=== PATIENT | male | born 1950 | race Caucasian/White ===

== ENCOUNTER → 2019-02-24 08:41 | Outpatient (CLI) | payer MEDICARE, OTHER, SELFPAY ==
--- NOTE | 2019-02-24 08:00 | RAD_ITS ---
PROCEDURE: Fluoroscopic guided left Hip Injection DATE: February 24, 2019. INDICATION: Male, 68 years old. Chronic hip pain. PHYSICIAN: Harjit Ulloa M.D. MEDICATIONS: 80 mg of Kenalog and 3 cc of 1% lidocaine. 2% Lidocaine administered subcutaneously for local anesthesia. ACCESS SITE: Left hip. NEEDLE: 22-gauge spinal needle. FLUOROSCOPY TIME (if supplied): (1:14) minutes/seconds FINDINGS: The risks, benefits, and alternatives to the procedure were explained to the patient. The specific risks of bleeding, infection, and neurovascular injury were detailed and accepted. Witnessed informed consent was obtained. A 22-gauge spinal needle was positioned under fluoroscopic localization. Approximately 2 cc of Isovue-300 instilled for localization purposes. Medication was then injected. The patient tolerated the procedure well without any immediate complications. RAD/Inj/Asp Wolf Jt Should/Hip/Knee IMPRESSION: 1. Successful fluoroscopic guided hip injection. Electronically Signed: Harjit Ulloa, at 11:22 EST , Service support ,
== END ==
PROVIDERS: Family Provider Internal Medicine; PCP Internal Medicine; Referring Provider Orthopaedic Surgery; Visit Provider Orthopaedic Surgery
DX: M25.552 Pain in left hip (principal); G89.29 Other chronic pain
CPT/HCPCS: 20610; 77002; Q9967

== ENCOUNTER → 2020-07-26 09:41 | Outpatient (CLI) | payer MEDICARE, OTHER, SELFPAY ==
--- NOTE | 2020-07-26 09:44 | CDU_ITS ---
Reason For Study: CAROTID STENOSIS Rt. Velocities/BP Lt. Velocities/BP Prox CCA 82.9/13.8 cm/sec. Prox CCA 68.7/22.6 cm/sec. Mid CCA 76.4/19.0 cm/sec. Mid CCA 49.0/19.1 cm/sec. Dist CCA 60.8/24.3 cm/sec. Dist CCA 46.2/15.6 cm/sec. Prox ICA 62.5/14.6 cm/sec. Prox ICA 55.4/24.1 cm/sec. Mid ICA 71.1/25.7 cm/sec. Mid ICA 61.6/24.6 cm/sec. Dist ICA 84.6/18.3 cm/sec. Dist ICA 67.1/25.1 cm/sec. Rt. ICA/CCA = 84.6/76.4=1.1. Lt. ICA/CCA = 67.1/49.0=1.3. Prox ECA 198.4/43.0 cm/sec. Flow noted in ECA, did not record Rt. Vert. 39.6/13.1 cm/sec. velocities. Lt. Vert. 43.8/11.1 cm/sec. Right Extracranial There is homogeneous, smooth atherosclerotic plaque noted in the right common carotid artery. There is heterogeneous, irregular atherosclerotic plaque noted in the right internal carotid artery. There is heterogeneous, irregular atherosclerotic plaque noted in the right external carotid artery. Antegrade flow is noted in the right vertebral artery. There is heterogeneous, irregular atherosclerotic plaque noted in the left bulb. Left Extracranial There is homogeneous, smooth atherosclerotic plaque noted in the left common carotid artery. There is homogeneous, smooth atherosclerotic plaque noted in the left internal carotid artery. The atherosclerotic plaque causes acoustic shadowing. There is heterogeneous, irregular atherosclerotic plaque noted in the left external carotid artery. Antegrade flow is noted in the left vertebral artery. There is a carotid artery stent noted in the left distal CCA to left mid ICA. There is accoustic shadowing. Procedure Carotid Duplex [id number]. The study was technically difficult. Exam performed in department. VL/Carotid Duplex Ultrasound Interpretation Summary Mild (<50%) stenosis right extracranial internal carotid. Mild (<50%) stenosis left extracranial internal carotid. Flow within the vertebral arteries is antegrade bilaterally. Ordering Physician: Jesus Weeks Referring Physician: Chris Byrd Performed By: Monisha Collazo, REVA, RVT
== END ==
PROVIDERS: PCP Internal Medicine; Referring Provider Surgery Vascular Surgery; Visit Provider Surgery Vascular Surgery
DX: I65.23 Occlusion and stenosis of bilateral carotid arteries (principal); Z96.89 Presence of other specified functional implants; I63.9 Cerebral infarction, unspecified; Z87.891 Personal history of nicotine dependence; I10 Essential (primary) hypertension
CPT/HCPCS: 93880

== ENCOUNTER → 2022-08-30 | Outpatient (CLI) | payer MEDICARE, OTHER, SELFPAY ==
--- NOTE | 2022-08-30 10:32 | CDU_ITS ---
Reason For Study: Carotid Stenosis Rt. Velocities/BP Lt. Velocities/BP Prox CCA 70/13 cm/sec. Prox CCA 61/20 cm/sec. Mid CCA 67/14 cm/sec. Mid CCA 49/18 cm/sec. Dist CCA 71/16 cm/sec. Dist CCA 35/11 cm/sec. Prox ICA 129/19 cm/sec. Prox ICA 68/22 cm/sec. Mid ICA 129/14 cm/sec. Mid ICA 80/27 cm/sec. Dist ICA 68/16 cm/sec. Dist ICA 71/27 cm/sec. Rt. ICA/CCA = 1.9. Lt. ICA/CCA = 1.6. Prox ECA 184/15 cm/sec. Prox ECA 26/4 cm/sec. Rt. Vert. 38/10 cm/sec. Lt. Vert. 129/32 cm/sec. Right Extracranial There is heterogeneous, irregular atherosclerotic plaque noted in the right common carotid artery. There is heterogeneous, irregular atherosclerotic plaque noted in the right internal carotid artery. There is heterogeneous, irregular atherosclerotic plaque noted in the right external carotid artery. Antegrade flow is noted in the right vertebral artery. Left Extracranial There is heterogeneous, irregular atherosclerotic plaque noted in the left common carotid artery. There is no significant atherosclerotic plaque noted in the left internal carotid artery. Stent noted from mid Lt CCA to mid Lt ICA, acoustic shadowing noted prox ICA. There is no significant atherosclerotic plaque noted in the left external carotid artery. Antegrade flow is noted in the left vertebral artery. Procedure Carotid Duplex [id number]. This is a Carotid Duplex examination using B-mode, color flow and specral Doppler. Exam performed in department. VL/Carotid Duplex Ultrasound Interpretation Summary Moderate (50-69%) stenosis right extracranial internal carotid. 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 Flow within the vertebral arteries is antegrade bilaterally. Ordering Physician: Jesus Weeks Referring Physician: Chris Byrd Performed By: Irene Duke REVA, RVT
== END | disposition home or self-care (01) ==
LOC: CVS 10:31
PROVIDERS: PCP Internal Medicine; Referring Provider Surgery Vascular Surgery; Visit Provider Surgery Vascular Surgery
DX: I65.23 Occlusion and stenosis of bilateral carotid arteries (principal); I63.9 Cerebral infarction, unspecified; Z96.89 Presence of other specified functional implants
CPT/HCPCS: 93880

== ENCOUNTER 2024-01-17 11:53 | Inpatient (IN) | payer MEDICARE, OTHER, SELFPAY ==
[2024-01-17] VITALS (19 sets, daily range): BP systolic 76–132; BP diastolic 47–69; PULSE 81–155; RESP 15–29; TEMP 36.4–37.7; O2SAT 93–98; BMI 21.8; BMI 30.8
--- NOTE | 2024-01-17 12:07 | EKG12_ITS ---
Test Reason : Blood Pressure : */* mmHG Vent. Rate : 153 BPM Atrial Rate : * BPM P-R Int : * ms QRS Dur : 134 ms QT Int : 308 ms P-R-T Axes : * -57 9 degrees QTcB Int : 491 ms Critical Test Result: High HR aflutter with 2:1 conduction Left axis deviation Right bundle branch block Abnormal ECG Confirmed by See Doss ([id number]), film or videotape editor [place] ([id number]) on 01/18/2024 1:42:40 PM Referred By: Santino Herrera Confirmed By: See Doss
--- NOTE | 2024-01-17 12:07 | RAD_ITS ---
STUDY: X-RAY CHEST REASON FOR EXAM: Male, 73 years old. Tachypnea . Cough and fever. Shortness of breath. TECHNIQUE: Single AP portable view of the chest. COMPARISON: None. FINDINGS: EKG electrodes are seen. Hyperinflation. Bibasilar infiltrates. There is no demonstrated pleural abnormality. Normal size heart. Normal mediastinum and yas. Normal visualized pulmonary arteries. There is atherosclerotic calcification of the aortic arch with tortuosity. Normal visualized thoracic spine. There is degenerative osteoarthritis of the bilateral shoulders. There is no demonstrated abnormality of the visualized soft tissue structures of the upper abdomen. RAD/Chest 1 View (Portable) IMPRESSION: Hyperinflation. Bibasilar infiltrates. Electronically Signed: Harjit Ulloa MD at 13:16 EST ,
--- NOTE | 2024-01-17 12:11 | EDS_ITS ---
HPI <YE Craig - Last Filed: 01/17/24 14:43> History of Present Illness Chief Complaint: Hypotension Narrative Narrative: Patient presenting today with concerns for a productive cough with yellow- colored sputum, shortness of breath, weakness, decreased appetite, and fevers he has had over the last 4 days. He reports that his has been sick with similar symptoms but is getting better. He denies chest pain, abdominal pain, nausea, vomiting, and diarrhea. He has a PMH of carotid artery stenosis on Plavix, HTN, and HLD. PFSH <YE Craig - Last Filed: 01/17/24 14:43> [facility] Medical History High cholesterol HTN (hypertension) Home Medications ?Medication ?Instructions ?Recorded ?Last Taken ?Type albuterol sulfate 90 mcg/actuation 2 puff inhalation Q4H PRN PRN cough 01/17/24 Unknown History aerosol inhaler atorvastatin 20 mg tablet 20 mg PO QHS 01/17/24 Unknown History clopidogrel 75 mg tablet 75 mg PO DAILY 01/17/24 Unknown History lisinopril 20 1 tab PO DAILY 01/17/24 Unknown History mg-hydrochlorothiazide 25 mg tablet loratadine 10 mg tablet (Claritin) 10 mg PO DAILY 01/17/24 Unknown History sildenafil 100 mg tablet 100 mg PO Q24H PRN sexual activity 01/17/24 Unknown History sildenafil 50 mg tablet 50 mg PO DAILY PRN sexual activity 01/17/24 Unknown History Allergy/AdvReac Type Severity Reaction Status Date / Time Penicillins Allergy Unknown Verified 01/17/24 11:55 Social History Smoking Status: Former smoker ROS <YE Craig - Last Filed: 01/17/24 14:43> ROS ED Constitutional Constitutional ED: Denies chills or fever(s) Cardiovascular Cardiovascular: Denies chest pain Respiratory/Chest Respiratory/Chest: Reports cough, dyspnea and sputum Gastrointestinal Gastrointestinal: Denies abdominal pain, nausea or vomiting Genitourinary Genitourinary ED: Denies dysuria, hematuria or urinary urgency Musculoskeletal Musculoskeletal: Denies arthralgias or myalgias Integumentary Denies rash Neurologic Neurologic: Denies weakness EXAM <YE Craig - Last Filed: 01/17/24 14:43> Physical Exam Const Vital Signs: 01/17/24 11:54 01/17/24 12:00 01/17/24 12:02 Temperature 99.8 F H Temperature Source Oral Pulse Rate 155 H 154 H 141 H Respiratory Rate 16 15 21 H Respiratory Effort Blood Pressure 88/47 L 88/47 L 76/65 L Blood Pressure Mean 60 60 68 Pulse Ox 95 96 96 Oxygen Delivery Method Room Air Room Air Room Air 01/17/24 12:02 01/17/24 12:03 01/17/24 12:15 Temperature Temperature Source Pulse Rate 154 H 147 H Respiratory Rate 21 H 22 H Respiratory Effort Short of Breath Blood Pressure 76/65 L 84/59 L Blood Pressure Mean 68 67 Pulse Ox 96 95 Oxygen Delivery Method 01/17/24 13:58 01/17/24 13:59 01/17/24 14:04 Temperature 99 F 99 F Temperature Source Oral Pulse Rate 150 H 150 H 148 H Respiratory Rate 21 H 21 H 27 H Respiratory Effort Blood Pressure 96/67 96/67 105/69 Blood Pressure Mean 76 76 81 Pulse Ox 95 95 95 Oxygen Delivery Method Room Air Positive well nourished, well developed and no apparent distress General Appearance ED: well developed HEENT Reports normocephalic and head/scalp atraumatic Mouth ED: Yes moist mucous membranes normal Eyes PERRL and EOMs intact bilaterally Neck full ROM and supple Chest Wall inspection of chest normal Resp normal respiratory effort Resp Narrative: Diffuse rhonchi at the bilateral lung bases. Cardio regular rate and regular rhythm GI soft to palpation, non-tender, non-distended and no masses Back/Spine normal ROM and normal to inspection Extremity normal to inspection and full ROM Neuro oriented x3, CN's II-XII intact bilaterally, moves all extremities, no focal motor deficits and no sensory deficits noted Sensorium / Orientation: awake and alert Psych mental status grossly normal and thought process normal Skin no rashes or lesions noted and no wounds <Dr. Santino Herrera MD - Last Filed: 01/17/24 14:44> Physical Exam Const Vital Signs: 01/17/24 11:54 01/17/24 12:00 01/17/24 12:02 Temperature 99.8 F H Temperature Source Oral Pulse Rate 155 H 154 H 141 H Respiratory Rate 16 15 21 H Respiratory Effort Blood Pressure 88/47 L 88/47 L 76/65 L Blood Pressure Mean 60 60 68 Pulse Ox 95 96 96 Oxygen Delivery Method Room Air Room Air Room Air 01/17/24 12:02 01/17/24 12:03 01/17/24 12:15 Temperature Temperature Source Pulse Rate 154 H 147 H Respiratory Rate 21 H 22 H Respiratory Effort Short of Breath Blood Pressure 76/65 L 84/59 L Blood Pressure Mean 68 67 Pulse Ox 96 95 Oxygen Delivery Method 01/17/24 13:58 01/17/24 13:59 01/17/24 14:04 Temperature 99 F 99 F Temperature Source Oral Pulse Rate 150 H 150 H 148 H Respiratory Rate 21 H 21 H 27 H Respiratory Effort Blood Pressure 96/67 96/67 105/69 Blood Pressure Mean 76 76 81 Pulse Ox 95 95 95 Oxygen Delivery Method Room Air Sepsis Attestation <Dr. Santino Herrera MD - Last Filed: 01/17/24 14:44> Sepsis Alert: Yes Sepsis Attestation: Agree w/Sepsis Date exam was performed: 01/17/24 Time exam was performed: 12:13 Sepsis Organ Dysfunction Criteria Present: SBP < 90 mmHg or MAP < 65 mmHg Fluid Resuscitation Fluid resuscitation indicated?: Yes Fluid Resuscitation ordered: 30 ml/kg fluid bolus ordered Amount of fluid ordered: 2,100 Sepsis Note Date exam was performed: 01/17/24 Time exam was performed: 13:44 Sepsis Attestation: Sepsis re-evaluation was performed Response to fluids: Fluid responsive hypotension MDM <YE Craig - Last Filed: 01/17/24 14:43> MDM MDM Narrative Medical decision making narrative: Patient presenting today with a productive cough, weakness, shortness of breath, and intermittent fevers she has had over the past 4 days. Vitals initially show a BP of 88/47, pulse of 155 bpm, temp of 99.8 ?F, and O2 sat of 95% on room air. Given his labs, he does trigger SIRS criteria and sepsis workup will be obtained. Patient started on IV fluids. His WBC is elevated at 18.2. BUN is 43, creatinine 2.27, bilirubin is 1.2, BNP is 269. Lactate is 2. He has been given 2 L IV fluids, and his blood pressure has responded and is now 105/69. Chest x-ray does show bibasilar infiltrates. He was started on IV Levaquin. Blood cultures were obtained prior to antibiotics. Patient was discussed with the hospitalist, the attending ED physician did place a central line and patient admitted to the ICU in stable condition. I have personally performed a face to face assessment of the patient and have reviewed the EFRAIN Note. I performed a substantive portion of the visit including all aspects of the following. My judd findings include: History is remarkable for shortness of breath, cough that is productive, fever. He arrived hypotensive. He appears ill. He has history of lung disease, hypercholesterolemia, and presumed carotid artery stenosis and reason he is on Plavix. He is not Exam is patient appears ill. Hypotensive, tachycardic tachypneic temperature is 99.8. He is not hypoxic on room air. Lungs reveal diminished breath sounds. He has crackles left greater than right. There is no use of accessory muscles. There is no increased expiratory phase. Abdomen is soft nontender. Bowel sounds are diminished. Medical Decision Making patient's presentation is concerning for sepsis. Sepsis order set was initiated. Patient did receive a 30 cc/kg bolus since he is hypotensive. EKG was obtained to evaluate for acute ischemia. Other additions or changes: White count is 18.2 thousand. H&H is normal. There is a shift. Suspect patient's source is pulmonary. Since he is allergic to penicillin with unknown allergy will treat with levofloxacin. Lab Data Labs: Laboratory Results - last 24 hr 01/17/24 12:13 WBC 18.2 H RBC 4.32 L Hgb 13.5 Hct 40.4 MCV 93.5 MCH 31.3 MCHC 33.4 RDW Std Deviation 45.1 H RDW Coeff of Ebony 13.0 Plt Count 181 MPV 11.3 Immature Gran % (Auto) 0.600 Neut % (Auto) 83.4 H Lymph % (Auto) 5.1 L [place] % (Auto) 10.6 H Eos % (Auto) 0.1 Baso % (Auto) 0.2 Absolute Neuts (auto) 15.2 H Absolute Lymphs (auto) 0.92 Nucleated RBC % 0 Differential Comment COMMENT Diff Path Review May foll PT 15.5 H INR 1.2 APTT 29.1 Sodium 136 Potassium 4.3 Chloride 104 Carbon Dioxide 24.0 Anion Gap 9 BUN 43 H Creatinine 2.27 H Estim Creat Clear Calc 30.37 Est GFR (MDRD) Af Amer 37 L Est GFR (MDRD) Non-Af 30 L BUN/Creatinine Ratio 18.9 Glucose 131 H Lactic Acid 2.0 Calcium 9.1 Total Bilirubin 1.20 H AST 29 ALT 22 Alkaline Phosphatase 71 Troponin I High Sens 27 B-Natriuretic Peptide 269.2 H Total Protein 7.1 Albumin 3.0 L Globulin 4.1 Albumin/Globulin Ratio 0.7 L Radiography Diagnostic Testing: Clinical Impression(s) from Imaging Studies Chest X-Ray 01/17/24 12:07 IMPRESSION: Hyperinflation. Bibasilar infiltrates. Electronically Signed: Harjit Ulloa MD at 13:16 EST , <Dr. Santino Herrera MD - Last Filed: 01/17/24 14:44> [facility] MDM Narrative Medical decision making narrative: Patient presenting today with a productive cough, weakness, shortness of breath, and intermittent fevers she has had over the past 4 days. Vitals initially show a BP of 88/47, pulse of 155 bpm, temp of 99.8 ?F, and O2 sat of 95% on room air. Given his labs, he does trigger SIRS criteria and sepsis workup will be obtained. Patient started on IV fluids. I have personally performed a face to face assessment of the patient and have reviewed the EFRAIN Note. I performed a substantive portion of the visit including all aspects of the following. My judd findings include: History is remarkable for shortness of breath, cough that is productive, fever. He arrived hypotensive. He appears ill. He has history of lung disease, hypercholesterolemia, and presumed carotid artery stenosis and reason he is on Plavix. He is not Exam is patient appears ill. Hypotensive, tachycardic tachypneic temperature is 99.8. He is not hypoxic on room air. Lungs reveal diminished breath sounds. He has crackles left greater than right. There is no use of accessory muscles. There is no increased expiratory phase. Abdomen is soft nontender. Bowel sounds are diminished. Medical Decision Making patient's presentation is concerning for sepsis. Sepsis order set was initiated. Patient did receive a 30 cc/kg bolus since he is hypotensive. EKG was obtained to evaluate for acute ischemia. Other additions or changes: White count is 18.2 thousand. H&H is normal. There is a shift. Suspect patient's source is pulmonary. Since he is allergic to penicillin with unknown allergy will treat with levofloxacin. Lab Data Attestation: I reviewed the patient's lab results. Lab results narrative: White count is elevated 18.2 thousand with shift. There is no bandemia. Electrolyte panel is remarkable for BUN/creatinine of 43 and 2.27. Patient has evidence of acute kidney injury. BNP is slightly elevated 269. Liver enzymes are normal. Coags were remarkable slight elevation of PT 15.5. Lactate is 2.0. Labs: Laboratory Results - last 24 hr 01/17/24 12:13 WBC 18.2 H RBC 4.32 L Hgb 13.5 Hct 40.4 MCV 93.5 MCH 31.3 MCHC 33.4 RDW Std Deviation 45.1 H RDW Coeff of Ebony 13.0 Plt Count 181 MPV 11.3 Immature Gran % (Auto) 0.600 Neut % (Auto) 83.4 H Lymph % (Auto) 5.1 L [place] % (Auto) 10.6 H Eos % (Auto) 0.1 Baso % (Auto) 0.2 Absolute Neuts (auto) 15.2 H Absolute Lymphs (auto) 0.92 Nucleated RBC % 0 Differential Comment COMMENT Diff Path Review May foll PT 15.5 H INR 1.2 APTT 29.1 Sodium 136 Potassium 4.3 Chloride 104 Carbon Dioxide 24.0 Anion Gap 9 BUN 43 H Creatinine 2.27 H Estim Creat Clear Calc 30.37 Est GFR (MDRD) Af Amer 37 L Est GFR (MDRD) Non-Af 30 L BUN/Creatinine Ratio 18.9 Glucose 131 H Lactic Acid 2.0 Calcium 9.1 Total Bilirubin 1.20 H AST 29 ALT 22 Alkaline Phosphatase 71 Troponin I High Sens 27 B-Natriuretic Peptide 269.2 H Total Protein 7.1 Albumin 3.0 L Globulin 4.1 Albumin/Globulin Ratio 0.7 L Radiography Chest X-Ray - ED: 1 View and Read by ED Physician (Cardiac silhouette and size appear normal. There is increased interstitial markings right lower lobe. Hilum is normal. Osseous structures unremarkable.) Diagnostic Testing: Clinical Impression(s) from Imaging Studies Chest X-Ray 01/17/24 12:07 IMPRESSION: Hyperinflation. Bibasilar infiltrates. Electronically Signed: Harjit Ulloa MD at 13:16 EST , Radiology report was read. He thought there was bibasilar infiltrates. EKG Initial EKG: Attestation: I personally reviewed and interpreted this EKG as follows: Interpretation: - (Wide-complex tachycardia rate of 153. This raises question for atrial flutter. P waves are seen in lead III. Rate is under 53. [place] to the left. QRS duration 134 ms. QT duration 208 ms. Patient has configuration consistent with right bundle branch block. There are no old EKGs for review.) Prior: No Prior Management Discussion w/another healthcare provider: Hospitalist Treatment and Re-Evaluation Comments:: Had discussion with patient and regarding need for Gutierrez and why it need to be placed. He is not willing to allow the nurse to place the Gutierrez. Spoke with the hospitalist who admit to ICU. Procedures <Dr. Santino Herrera MD - Last Filed: 01/17/24 14:44> Other Procedures Procedure(s): Patient was consented for central line. I informed her I was not certain whether I would place the line in the right internal jugular versus the right subclavian. Patient explained this benefits. Did sign consent form. Using the ultrasound machine the right IJ and right carotid artery her overlapping. Concerned that this may cause injury to the artery patient was prepped for a right subclavian line. Patient was prepped draped sterile manner and hospital protocol was adhered to. Nurse that was in room did wear a, gloves and mask during the procedure. The right subclavian vessel was cannulated on the second attempt on the way out blood was noted. Using Seldinger technique 7.5 Setswana triple-lumen was placed. Blood was aspirated from all 3 ports. Will obtain x-ray to confirm position. Patient does have bruising at the first site due to Plavix. <Dr. Santino Herrera MD - Last Filed: 01/17/24 14:44> Critical Care Time Critical Care Time: Yes Critical care time (excluding procedures): 30-74 minutes (33), Including time spent: (History, physical, documentation, discussion with patient and spouse regarding need for admission to ICU and need for Gutierrez etc.), Discussing w/Patient &/or Family/[employer] Head, Discussing w/Consultants, Arranging Admission or Transfer and - (Case discussed with Dr. Ginette Mendieta. She will see patient. She was made aware that patient was fluid responsive. His blood pressure is still on the low side. If a central line is needed I informed her to help her out I would gladly place 1.) Discharge Plan Dx/Rx/DC Orders Clinical Impression: Severe sepsis with acute organ dysfunction, Community acquired pneumonia, Acute hypotension, GREGOR (acute kidney injury), Wide-complex tachycardia, Antiplatelet or antithrombotic long-term use Disposition Disposition: Acute Care Hospital [facility]
[2024-01-17] MEDS: 0.9% Normal Saline (1000mL) 1,000 ML 1000 ML IV (12:18)
[2024-01-17 12:28] LABS: Absolute Lymphocyte Count 0.92 X10^3/uL (0.83-4.51); Absolute Neutrophil Count 15.2 X10^3/uL (2.0-7.7); Basophil# 0.03 X10^3/uL; Basophil% 0.2 % (0-1); Eosinophil# 0.01 X10^3/uL; Eosinophils% 0.1 % (0-5); Hematocrit 40.4 % (40-54); Hemoglobin 13.5 g/dL (13.0-16.5); Lymphocyte # 0.92 X10^3/ul (0.83-4.51); Lymphocyte % 5.1 % (19-41); Mean Corp Hgb Conc 33.4 g/dL (32-36); Mean Corpuscular Hgb 31.3 pg (27.0-32.0); Mean Corpuscular Volume 93.5 fL (80-94); Mean Platelet Vol. 11.3 fl (6.2-12.0); Monocyte# 1.92 X10^3/uL; Monocyte% 10.6 % (0-10); NRBC Flagged by Analyzer 0 % (0-5); Neutrophil % 83.4 % (47-70); POSITIVE DIFFERENTIAL YES; Platelet Count 181 K/mm3 (150-450); RBC Distribution Width SD 45.1 fl (35.1-43.9); Red Blood Count 4.32 M/mm3 (4.6-6.2); White Blood Count 18.2 K/mm3 (4.4-11.0)
[2024-01-17 12:29] LABS: Differential Indicated SCAN CRITERIA MET
[2024-01-17 12:39] LABS: International Normalized Ratio 1.2; Prothrombin Time (Protime)PT. 15.5 SECONDS (11.7-14.9)
[2024-01-17 12:40] LABS: Partial Thromboplast Time 29.1 Seconds (24.1-36.2)
[2024-01-17] MEDS: 0.9% Normal Saline (1000mL) 1,000 ML 1100 ML IV (13:11)
[2024-01-17] MEDS: levoFLOXacin IV 750 MG/150 ML BAG 100 MG IV (13:11)
[2024-01-17 13:14] LABS: BNP,B-Type NATRIURETIC PEPTIDE 269.2 pg/mL (0-100)
[2024-01-17 13:22] LABS: ALB/GLOB Ratio 0.7 RATIO (0.9-2.4); AST(SGOT) 29 U/L (15-37); Alanine Aminotransfer ALT/SGPT 22 U/L (16-61); Alkaline Phosphatase 71 U/L (45-117); Anion Gap 9 (5-15); BUN 43 mg/dL (7-18); BUN/Creat Ratio 18.9 RATIO (10-20); Calcium,Total 9.1 mg/dL (8.5-10.1); Chloride 104 mmol/L (98-107); Creatinine, Serum 2.27 mg/dL (0.70-1.30); EST Glomerular Filtration Rate 30 mL/min (>60); Est Glom Filt Rate - Afr Amer 37 mL/min (>60); Estimated Creatinine Clearance 30.37 ml/min; Globulin 4.1 g/dL (2.2-4.2); Glucose 131 mg/dL (74-106); Potassium 4.3 mmol/L (3.5-5.1); Protein, Total 7.1 g/dL (6.4-8.2); Sodium Level 136 mmol/L (136-145); Troponin-I HS 27 pg/mL (3.0-78.0)
[2024-01-17] MEDS: Nitrofurantoin Macrocrystals 100 MG Capsule PO (13:42)
--- NOTE | 2024-01-17 14:26 | HP.PCM.HOS_ITS ---
HPI - General General Date of Admission: 01/17/24 Date of Service: 01/17/24 Chief Complaint: Cough and shortness of breath HPI Narrative TARSHA DO, is a 73-year-old male history of hypertension and carotid artery stenosis presented [facility] 01/17/2024 with productive cough with yellow sputum, shortness of breath, weakness, decreased appetite and fevers over the past 4 days. In the ED he was hypotensive and tachycardic and was found to have a creatinine of 2.27 which was presumed to be up from baseline and white blood cell count of 18 with imaging suggestive of a pneumonia. Patient given IV fluids and blood pressure did slightly improve however patient still ill tachycardic with heart rate 140s to 150s so central and placed hospitalist contacted for admission. Patient evaluated at bedside and reports that he has had fevers, chills, cough productive of sputum with weakness and feeling generally unwell for the past 4 days, was also sick but has recovered. Patient reports some chest pain with coughing but ROS otherwise negative [facility] Medical History High cholesterol HTN (hypertension) Home Medications ?Medication ?Instructions ?Recorded ?Last Taken ?Type albuterol sulfate 90 mcg/actuation 2 puff inhalation Q4H PRN PRN cough 01/17/24 Unknown History aerosol inhaler atorvastatin 20 mg tablet 20 mg PO QHS 01/17/24 Unknown History clopidogrel 75 mg tablet 75 mg PO DAILY 01/17/24 Unknown History lisinopril 20 1 tab PO DAILY 01/17/24 Unknown History mg-hydrochlorothiazide 25 mg tablet loratadine 10 mg tablet (Claritin) 10 mg PO DAILY 01/17/24 Unknown History sildenafil 100 mg tablet 100 mg PO Q24H PRN sexual activity 01/17/24 Unknown History sildenafil 50 mg tablet 50 mg PO DAILY PRN sexual activity 01/17/24 Unknown History Allergy/AdvReac Type Severity Reaction Status Date / Time Penicillins Allergy Unknown Verified 01/17/24 11:55 Social History Smoking Status: Former smoker ROS ROS Narrative General: Has had fevers HENT: Denies stuffy nose, denies sore throat EYES: Denies changes in vision Resp: Increased shortness of breath and productive cough Cardiac: Chest pain with coughing GI: Denies abdominal pain, denies changes in bowel, denies nausea/vomiting : Denies changes in urination Extremity: Denies swelling MSK: Generalized weakness Neuro: Denies any numbness/tingling Heme: Denies any bleeding or bruising Skin: Denies rashes Psychiatric: No complaints voiced Vital Signs Vital Signs Vital Signs: 01/17/24 11:54 01/17/24 12:00 01/17/24 12:02 Temperature 99.8 F H Temperature Source Oral Pulse Rate 155 H 154 H 141 H Respiratory Rate 16 15 21 H Respiratory Effort Blood Pressure 88/47 L 88/47 L 76/65 L Blood Pressure Mean 60 60 68 Pulse Ox 95 96 96 Oxygen Delivery Method Room Air Room Air Room Air 01/17/24 12:02 01/17/24 12:03 01/17/24 12:15 Temperature Temperature Source Pulse Rate 154 H 147 H Respiratory Rate 21 H 22 H Respiratory Effort Short of Breath Blood Pressure 76/65 L 84/59 L Blood Pressure Mean 68 67 Pulse Ox 96 95 Oxygen Delivery Method 01/17/24 13:58 01/17/24 13:59 01/17/24 14:04 Temperature 99 F 99 F Temperature Source Oral Pulse Rate 150 H 150 H 148 H Respiratory Rate 21 H 21 H 27 H Respiratory Effort Blood Pressure 96/67 96/67 105/69 Blood Pressure Mean 76 76 81 Pulse Ox 95 95 95 Oxygen Delivery Method Room Air Weight Weight: 73 kg Body Mass Index (BMI) 21.8 Physical Exam Narrative General: Alert, oriented, appears unwell HEENT: Atraumatic, normocephalic Eyes: Anicteric, normal conjunctiva, extraocular movements grossly intact Neck: Supple Respiratory: Increased work of breathing with diminished breath sounds bilaterally Cardiovascular: Sinus tachycardia GI: Soft, nontender, nondistended Extremities: No edema Musculoskeletal: Moving all extremities Neuro: No overt focal neurological deficits Skin: No rashes appreciated Psych: Cooperative Results Lab / Micro Data 01/17/24 12:13 01/17/24 12:13 Labs: Laboratory Results - last 24 hr 01/17/24 12:13: WBC 18.2 H, RBC 4.32 L, Hgb 13.5, Hct 40.4, MCV 93.5, MCH 31.3, MCHC 33.4, RDW Std Deviation 45.1 H, RDW Coeff of Ebony 13.0, Plt Count 181, MPV 11.3, Immature Gran % (Auto) 0.600, Neut % (Auto) 83.4 H, Lymph % (Auto) 5.1 L, [place] % (Auto) 10.6 H, Eos % (Auto) 0.1, Baso % (Auto) 0.2, Absolute Neuts (auto) 15.2 H, Absolute Lymphs (auto) 0.92, Nucleated RBC % 0, Differential Comment COMMENT, Diff Path Review June foll, PT 15.5 H, INR 1.2, APTT 29.1, Sodium 136, Potassium 4.3, Chloride 104, Carbon Dioxide 24.0, Anion Gap 9, BUN 43 H, C reatinine 2.27 H, Estim Creat Clear Calc 30.37, Est GFR (MDRD) Af Amer 37 L, Est GFR (MDRD) Non-Af 30 L, BUN/Creatinine Ratio 18.9, Glucose 131 H, Lactic Acid 2.0, Calcium 9.1, Total Bilirubin 1.20 H, AST 29, ALT 22, Alkaline Phosphatase 71, Troponin I High Sens 27, B-Natriuretic Peptide 269.2 H, Total Protein 7.1, A lbumin 3.0 L, Globulin 4.1, Albumin/Globulin Ratio 0.7 L Micro: Microbiology 01/17/24 12:13 Mucosa - Nose SARS-CoV-2, Influenza & RSV (PCR) - Final Imaging Radiology Impression Chest X-Ray 01/17/24 12:07 IMPRESSION: Hyperinflation. Bibasilar infiltrates. Electronically Signed: Harjit Ulloa MD at 13:16 EST Reading Location ID and State: [facility] / [place] , Service support , Assessment & Plan Assessment/Plan (1) Sepsis: PLAN: Plan # Suspected sepsis secondary to community-acquired pneumonia -Patient with chest x-ray suggestive of pneumonia -White count 18, creatinine 2.27, patient tachypneic, tachycardic, hypotensive -Patient received 30 cc/kg of IV fluids but blood pressures remain borderline and patient was tachycardic to send feeling placed in the ED -Does not yet meet criteria for IV vasopressors given improvement in blood pressure there is concern that it will decrease again so we will monitor patient closely, patient to be admitted to ICU -Nataleebs and as needed albuterol -Sputum culture, COVID negative, respiratory panel ordered -Blood culture ordered -Urine antigens -Mucinex, I/S -Levaquin # Suspect GREGOR -No recent values available however creatinine 2.27 and BUN 43 -Avoid nephrotoxic agents, treat underlying infection -If not improving with above measures will need further workup #Hypertension -Hold home medications given above # History of carotid stenosis -Continue aspirin and Plavix #DVT ppx: Heparin subcu Ginette Mendieta MD Sepsis Attestation Sepsis Alert: Yes Sepsis Attestation: Agree w/Sepsis Date exam was performed: 01/17/24 Time exam was performed: 02:15 Possible Source of Sepsis: Pulmonary Sepsis Organ Dysfunction Criteria Present: SBP < 90 mmHg or MAP < 65 mmHg and Creatinine > 2.0 mg/dL Supportive Findings: Increased RR as well Fluid Resuscitation Fluid resuscitation indicated?: Yes Fluid Resuscitation ordered: 30 ml/kg fluid bolus ordered Charges/Coding Visit Charges Inpatient E&M: 18351 Init Hosp L2
--- NOTE | 2024-01-17 15:02 | EKG12_ITS ---
Test Reason : Blood Pressure : */* mmHG Vent. Rate : 79 BPM Atrial Rate : 79 BPM P-R Int : 160 ms QRS Dur : 150 ms QT Int : 396 ms P-R-T Axes : 74 -30 30 degrees QTcB Int : 454 ms Normal sinus rhythm Left axis deviation Right bundle branch block Abnormal ECG Confirmed by See Doss ([id number]), telegraph editor [place] ([id number]) on 01/18/2024 10:46:21 AM Referred By: Santino Herrera Confirmed By: See Doss
--- NOTE | 2024-01-17 16:17 | PCM.HOSP.N ---
Hospitalist Note Was made aware that patient seemed to have a break in his rhythm and it was felt that his tachycardia in part may have been flutter with 2-1 block, and is presently now in normal sinus rhythm, abnormal rhythm in ED may be due to his acute underlying illness but unclear. Will monitor patient on telemetry, obtain TSH, echocardiogram. Risk of stroke in the short-term is low, will need to weigh risks and benefits with patient regarding further workup and anticoagulation prior to discharge
--- NOTE | 2024-01-17 16:19 | ECHOCS_ITS ---
Reason For Study: Afib/Flutter Procedure This was a 2D Doppler, Color Flow transthoracic echocardiogram. The study was technically difficult. Contrast injection was performed. Exam performed portable in ICU/CCU. Left Ventricle Normal LV size. Left ventricular systolic function is normal. The left ventricular ejection fraction is 60 %. Stage 1 diastolic dysfunction. No regional wall motion abnormalities noted. Right Ventricle Normal RV size. Normal systolic function. Atria Normal left atrium. Normal right atrium. Mitral Valve Normal mitral valve. Tricuspid Valve Normal tricuspid valve. Mild tricuspid valve insufficiency. Aortic Valve Trisinus/trileaflet aortic valve. Pulmonic Valve Normal pulmonic valve. Great Vessels Normal aortic root. The pulmonary artery is normal size. Inferior vena cava collapse with sniff. Pericardium/Pleural No pericardial effusion. Medication Diluted definity 2ml given slow IV push to enhance endocardial definition. MMode/2D Measurements & Calculations LVIDd: 4.8 cm IVSd: 0.99 cm Ao root diam: 3.9 cm LVIDs: 3.0 cm LVPWd: 1.0 cm RVDd: 4.0 cm FS: 37.2 % LAV(MOD-bp): 60.7 ml LVAd ap4: 38.2 cm2 SV(MOD-sp4): 88.1 ml LAV(MOD-bp) Indexed: 27.0 ml/m2 LVLd ap4: 8.7 cm SI(MOD-sp4): 39.2 ml/m2 LAV(MOD-sp2): 66.6 ml EDV(MOD-sp4): 138.4 ml LAV(MOD-sp4): 46.8 ml EDV(sp4-el): 142.7 ml LVAs ap4: 20.6 cm2 LVLs ap4: 6.8 cm ESV(MOD-sp4): 50.3 ml ESV(sp4-el): 52.5 ml EF(MOD-sp4): 63.7 % EF(sp4-el): 63.2 % SV(sp4-el): 90.2 ml LA A4 area: 19.7 cm2 RA A4 area: 15.9 cm2 TAPSE: 1.4 cm Time Measurements MV dec time: 0.23 sec Doppler Measurements & Calculations MV E max carlos: 69.0 cm/sec Lat Peak E' Carlos: 17.0 cm/sec Med Peak E' Carlos: 12.0 cm/sec MV A max carlos: 74.3 cm/sec E/E' lat: 4.1 E/E' med: 5.8 MV E/A: 0.93 MV V2 max: 94.4 cm/sec MV P1/2t max carlos: 93.9 cm/sec Ao V2 max: 129.7 cm/sec MV max P.6 mmHg MV P1/2t: 85.1 msec Ao max P.7 mmHg MV V2 mean: 52.8 cm/sec MV mean P.3 mmHg MV dec slope: 323.0 cm/sec2 MV V2 VTI: 28.2 cm MVA(P1/2t): 2.6 cm2 LV V1 max: 117.5 cm/sec LV V1 max P.5 mmHg ECHO/Echo Complete W/ Contrast Interpretation Summary Normal LV size. Left ventricular systolic function is normal. The left ventricular ejection fraction is 60 %. Stage 1 diastolic dysfunction. Contrast injection was performed. Ordering Physician: Ginette Mendieta Referring Physician: Santino Herrera Performed By: Qasim Keen RCS
[2024-01-17 16:24] LABS: Reflex Lactate? Y
[2024-01-17 18:10] LABS: Lactic Acid 0.9 mmol/L (0.4-1.9)
[2024-01-17] MEDS: Ipratropium/Albuterol Sulfate 3 ML AMPUL.NEB INHALATION (19:38)
[2024-01-17] MEDS: guaiFENesin 1,200 MG Tablet 1200 MG PO (20:26)
[2024-01-17] MEDS: Atorvastatin Calcium 20 MG Tablet PO (20:26)
[2024-01-17] MEDS: Heparin Injection (Vial) 5,000 UNIT/ML VIAL 5000 UNIT SC (20:26)
[2024-01-18] VITALS (19 sets, daily range): BP systolic 96–147; BP diastolic 49–69; PULSE 70–88; RESP 12–26; TEMP 36.4–37.2; O2SAT 92–96; BMI 30.8
[2024-01-18] MEDS: Ipratropium/Albuterol Sulfate 3 ML AMPUL.NEB INHALATION ×4 (01:00→19:44)
[2024-01-18] MEDS: 0.9% Saline Lock 10 ML Syringe IV (03:46)
[2024-01-18 03:59] LABS: Absolute Lymphocyte Count 1.23 X10^3/uL (0.83-4.51); Absolute Neutrophil Count 9.3 X10^3/uL (2.0-7.7); Basophil# 0.02 X10^3/uL; Basophil% 0.2 % (0-1); Eosinophil# 0.09 X10^3/uL; Eosinophils% 0.8 % (0-5); Hematocrit 32.6 % (40-54); Hemoglobin 10.9 g/dL (13.0-16.5); Lymphocyte # 1.23 X10^3/ul (0.83-4.51); Lymphocyte % 10.3 % (19-41); Mean Corp Hgb Conc 33.4 g/dL (32-36); Mean Corpuscular Hgb 31.3 pg (27.0-32.0); Mean Corpuscular Volume 93.7 fL (80-94); Mean Platelet Vol. 10.7 fl (6.2-12.0); Monocyte# 1.24 X10^3/uL; Monocyte% 10.4 % (0-10); NRBC Flagged by Analyzer 0 % (0-5); Neutrophil # 9.32 X10^3/uL (2.7-7.7); Neutrophil % 77.6 % (47-70); Platelet Count 143 K/mm3 (150-450); RBC Distribution Width CV 13.1 % (11.6-14.6); RBC Distribution Width SD 45.1 fl (35.1-43.9); Red Blood Count 3.48 M/mm3 (4.6-6.2)
[2024-01-18 04:21] LABS: ALB/GLOB Ratio 0.7 RATIO (0.9-2.4); AST(SGOT) 13 U/L (15-37); Alanine Aminotransfer ALT/SGPT 20 U/L (16-61); Albumin, Serum 2.6 g/dL (3.2-5.0); Alkaline Phosphatase 60 U/L (45-117); Anion Gap 9 (5-15); BUN 37 mg/dL (7-18); Calcium,Total 8.5 mg/dL (8.5-10.1); Chloride 103 mmol/L (98-107); Creatinine, Serum 1.61 mg/dL (0.70-1.30); EST Glomerular Filtration Rate 45 mL/min (>60); Est Glom Filt Rate - Afr Amer 54 mL/min (>60); Globulin 3.5 g/dL (2.2-4.2); Glucose 144 mg/dL (74-106); Potassium 3.3 mmol/L (3.5-5.1); Protein, Total 6.1 g/dL (6.4-8.2); Sodium Level 136 mmol/L (136-145)
--- NOTE | 2024-01-18 07:28 | PCM.PN.HOSP ---
Reason for Visit Reason for Visit: Diagnoses Sepsis, unspecified organism (01/17/24) Objective Data Objective Data Vital Signs: Vital Signs Temp Pulse Resp BP Pulse Ox O2 Del Method 97.5 F L 76 15 97/55 L 95 Room Air 01/18/24 04:00 01/18/24 06:54 01/18/24 06:54 01/18/24 06:00 01/18/24 06:54 01/18/24 06:54 Oxygen Delivery Method Room Air Weight: 227 lb 8.273 oz Body Mass Index (BMI) 30.8 Intake & Output: Intake and Output for Last 24 Hours 01/16/24 01/17/24 01/18/24 23:59 23:59 23:59 Intake Total 2150 / 2150 Output Total 400 / 400 350 / 350 Balance 1750 / 1750 -350 / -350 Lab / Micro Data 01/18/24 03:50 01/18/24 03:50 Labs: Laboratory Results - last 24 hr 01/17/24 12:13: WBC 18.2 H, RBC 4.32 L, Hgb 13.5, Hct 40.4, MCV 93.5, MCH 31.3, MCHC 33.4, RDW Std Deviation 45.1 H, RDW Coeff of Ebony 13.0, Plt Count 181, MPV 11.3, Immature Gran % (Auto) 0.600, Neut % (Auto) 83.4 H, Lymph % (Auto) 5.1 L, [place] % (Auto) 10.6 H, Eos % (Auto) 0.1, Baso % (Auto) 0.2, Absolute Neuts (auto) 15.2 H, Absolute Lymphs (auto) 0.92, Nucleated RBC % 0, Differential Comment COMMENT, Diff Path Review June foll, PT 15.5 H, INR 1.2, APTT 29.1, Sodium 136, Potassium 4.3, Chloride 104, Carbon Dioxide 24.0, Anion Gap 9, BUN 43 H, Creatinine 2.27 H, Estim Creat Clear Calc 30.37, Est GFR (MDRD) Af Amer 37 L, Est GFR (MDRD) Non-Af 30 L, BUN/Creatinine Ratio 18.9, Glucose 131 H, Lactic Acid 2.0, Calcium 9.1, Total Bilirubin 1.20 H, AST 29, ALT 22, Alkaline Phosphatase 71, Troponin I High Sens 27, B-Natriuretic Peptide 269.2 H, Total Protein 7.1, Albumin 3.0 L, Globulin 4.1, Albumin/Globulin Ratio 0.7 L, TSH 1.360 01/17/24 17:20: Lactic Acid 0.9 01/18/24 03:50: WBC 12.0 H, RBC 3.48 L, Hgb 10.9 L, Hct 32.6 L, MCV 93.7, MCH 31.3, MCHC 33.4, RDW Std Deviation 45.1 H, RDW Coeff of Ebony 13.1, Plt Count 143 L, MPV 10.7, Immature Gran % (Auto) 0.700, Neut % (Auto) 77.6 H, Lymph % (Auto) 10.3 L, [place] % (Auto) 10.4 H, Eos % (Auto) 0.8, Baso % (Auto) 0.2, Absolute Neuts (auto) 9.3 H, Absolute Lymphs (auto) 1.23, Nucleated RBC % 0, Sodium 136, Potassium 3.3 L, Chloride 103, Carbon Dioxide 24.0, Anion Gap 9, BUN 37 H, Creatinine 1.61 H, Estim Creat Clear Calc 51.50, Est GFR (MDRD) Af Amer 54 L, Est GFR (MDRD) Non-Af 45 L, BUN/Creatinine Ratio 23.0 H, Glucose 144 H, Calcium 8.5, Total Bilirubin 0.70, AST 13 L, ALT 20, Alkaline Phosphatase 60, Total Protein 6.1 L, Albumin 2.6 L, Globulin 3.5, Albumin/Globulin Ratio 0.7 L Micro: Microbiology 01/17/24 16:52 Mucosa - Nasopharyngeal Respiratory Panel (PCR) - Final 01/17/24 17:00 Nasal Secretion MRSA (PCR) - Final 01/17/24 17:00 Urine Catheter - Catheter Legionella Antigen - Final 01/17/24 17:00 Urine Catheter - Catheter Streptococcus pneumoniae Antigen (M - Final 01/17/24 12:13 Mucosa - Nose SARS-CoV-2, Influenza & RSV (PCR) - Final Radiography Diagnostic Testing: Radiology Impression Chest X-Ray 01/17/24 12:07 IMPRESSION: Hyperinflation. Bibasilar infiltrates. Electronically Signed: Harjit Ulloa MD at 13:16 EST , Physical Exam Narrative Seen and examined. Patient has been gradually getting sick for last 1 week but symptoms were more prominent for last 4 days with brownish sputum productive cough, low-grade fever and chills and shortness of breath. Patient is still coughing and bringing up phlegm. No history of DVT. History of smoking started at the age of 17 and quit a year ago. 55 pack years of smoke Physical exam: General: Alert, Oriented x3, Cooperative HEENT: Atraumatic, PERRLA, EOMI, Normocephalic Oral: Oral mucosa dry no Gingival or Mucosal Lesions/ Ulcerations Neck: Supple, No JVD, Negative Carotid Bruits Chest wall/Lungs: Air entry diminished in bilateral lung bases. Bilateral coarse crepitations. Mild tachypnea. No hypoxia Cardiovascular: Regular rate, Regular Rhythm, Normal S1, Normal S2, No M/G/R Abdomen: Bowel Sounds Present, Soft, Non Tender, Non-Distended : No dysuria. No renal angle tenderness. No suprapubic tenderness. Extremities: No edema, Capillary Refill Less than 3 Seconds Skin: No rashes, No breakdown Musculoskeletal: No Tenderness to Palpation of Joints or Extremities. Neurological: Cranial nerves II-XII grossly intact, DTR 2+/4. No acute focal neurological deficit. Psych/Mental Status: Normal Affect, Appropriate. Exam: Assessment & Plan Assessment/Plan (1) Sepsis: PLAN: Plan 73-year-old gentleman admitted with productive cough with yellow-colored sputum, shortness of breath, decreased appetite, generalized weakness and fever for about 1 week. In ED, his BP was low, dizzy and tachycardic with creatinine 2.27 and WBC count of 18K and x-ray suggestive of pneumonia. The patient's had been sick with similar symptoms but getting better. # Suspected sepsis secondary to community-acquired pneumonia: Patient is being admitted in ICU as per protocol. The patient presented with sepsis with clinical indicators of due to fever, tachycardia, tachypnea, leukocytosis and shortness of breath with acute sepsis-related organ dysfunction as evidenced by SBP less than 90 mmHg x 2 and GREGOR. -Patient received 30 cc/kg of IV fluids but blood pressures remain borderline and patient was tachycardic to send feeling placed in the ED -Patient started on broad-spectrum IV antibiotic Levaquin. Infectious workup including triple PCR for SARS-CoV-2, flu and RSV are negative, respiratory panel and urinary antigens are negative. DuoNeb as needed. Blood cultures x 2 pending. On Mucinex 01/17: BP is still on lower side in 90s but MAP more than 65. Did not require vasopressor. Patient has 55 pack years of smoking but denies history of COPD/emphysema probably never had PFT. # Suspect GREGOR: Last creatinine level was 1.1 in December 2011. Admit creatinine 2.27 and BUN 43 -Avoid nephrotoxic agents, treat underlying infection 01/17: Creatinine shows improvement 1.61 #Hypertension -Hold home medications given above # History of carotid stenosis -Continue aspirin and Plavix #DVT ppx: Heparin subcu Charges/Coding Visit Charges Inpatient E&M: 81411 Subs Hosp L3
[2024-01-18] MEDS: Clopidogrel Bisulfate 75 MG Tablet PO (08:22)
[2024-01-18] MEDS: guaiFENesin 1,200 MG Tablet 1200 MG PO ×2 (08:22→20:35)
[2024-01-18] MEDS: Loratadine 10 MG Tablet PO (08:22)
[2024-01-18] MEDS: Heparin Injection (Vial) 5,000 UNIT/ML VIAL 5000 UNIT SC ×2 (08:22→20:35)
--- NOTE | 2024-01-18 09:09 | SEPSISATNOTE ---
Sepsis Attestation Sepsis Alert: Yes Date exam was performed: 01/18/24 Time exam was performed: 09:09 Possible Source of Sepsis: Pulmonary Sepsis Organ Dysfunction Criteria Present: SBP < 90 mmHg or MAP < 65 mmHg, SBP decrease of more than 40 mmHg and Creatinine > 2.0 mg/dL Fluid Resuscitation Fluid resuscitation indicated?: Yes Fluid Resuscitation ordered: 30 ml/kg fluid bolus ordered Sepsis Note Date exam was performed: 01/18/24 Time exam was performed: 07:45 Sepsis Attestation: Sepsis re-evaluation was performed Response to fluids: Fluid responsive hypotension
--- NOTE | 2024-01-18 10:34 | CASEMGMT ---
ILSA MONTERROSO Assessment ? Face to Face with patient for initial?transition planning/care coordination assessment. LISA MONTERROSO introduced self and role at [facility], pt voices understanding. Pt is A&Ox4 and is resting comfortably in bed and is calm. Pt at bedside. Care providers, pharmacy, and demographics verified. ? Admitting dx: ?sepsis LACE Strata: ?1 PCP: ?Chris Byrd Specialists: ?patient states that he sees a box blank machine feeder in [place]. Believes that this is Dr. Weeks Preferred Pharmacy: [facility]? Insurance: ?Medicare A/B, [facility] Prescription Benefit: ?yes LNOK: ?Krissy Banegas (W), Robin Banegas (Son) Living Arrangements: ?patient lives with his on the second story of an apartment complex. Reports that there are about 10 steps total to enter and that the apartment is all on one floor. ADLs/IADLs:?states independent Transportation: ?self, DME: ?patient has access to a cane at home but does not use. Patient is currently 97% on room air. HHC/SNF: ?reports home healthcare through [facility] x2 to 3 years ago after hip surgery. Denies fpc facility history Pt?s goal:?return home with patient Plan: ?anticipate eventual discharge home with the patient?s once medically ready. Patient denies the need for home healthcare, outpatient therapy, or community care network. Patient and patient both state that they feel safe with his plan moving forward. Patient and patient deny any further questions or concerns at this time. Karen Wilson RN, CM
--- NOTE | 2024-01-18 12:18 | EX.PCM.CONCC ---
Assessment & Plan Assessment/Plan (1) Sepsis: (2) GREGOR (acute kidney injury): (3) Community acquired pneumonia: PLAN: Plan RECOMMENDATIONS: 1. Continue antimicrobial therapy. 2. Supplemental oxygen, if needed, to maintain saturations at or above 90%. 3. Continue scheduled bronchodilators. 4. Continue appropriate DVT prophylaxis. 5. Encourage incentive spirometer use and mobilize patient as tolerated. IMPRESSIONS: 1. Sepsis The patient presented to the hospital with sepsis due to suspected community-acquired pneumonia with acute sepsis related organ dysfunction as evidenced by fluid responsive hypotension and acute kidney injury. The patient was initiated on antimicrobial therapy and remains hemodynamically stable on room air. In light of his history of tobacco dependency and suspected COPD, I agree with continuing scheduled bronchodilators. Otherwise, the patient is clinically stable. Cultures are pending. 2. Acute kidney injury Suspect prerenal etiology, given interval improvement in creatinine with volume resuscitation and unknown creatinine baseline. Continue to monitor urine output. No current indication for renal replacement therapy. 3. History of tobacco dependency/hypertension/hyperlipidemia Complicates care, management, recovery and prognosis. Continue home medications as indicated. This note was generated with [employer] dictation software. It may contain incorrect words, spelling, and punctuation that were not noted in checking the note before signing. HPI Consult Data Date of Consult: 01/18/24 HPI Narrative Reason for Consultation: Sepsis HPI Narrative: The patient is a 73-year-old male, with a history as outlined below, who presented to the emergency department on January 16 with shortness of breath, generalized malaise and productive cough of 5 days duration. The patient is an active smoker, stating that typically he smokes 5 cigarettes/day. However, he has never been formally diagnosed with COPD, nor does he follow with a golf cart maker. He does reportedly utilize as needed albuterol in his home environment. He is not oxygen dependent at his baseline. He denied any recent sick contacts. On presentation to the emergency department, the patient was documented to have a low-grade temperature and was tachycardic and tachypneic. The patient did have several blood pressure readings with systolic less than 90 mmHg. Laboratory evaluation revealed an elevated white blood cell count 18,000. Chemistry profile was notable for a creatinine of 2.27. Lactate was within normal limits. Chest x-ray demonstrated bibasilar infiltrates. COVID, influenza and RSV PCR's were negative. Strep and urine Legionella antigens were negative. Blood, urine and sputum cultures were collected. The patient received supplemental IV fluid hydration was initiated on antimicrobial therapy. He was subsequently admitted to the medical intensive care unit for further management. Overnight, the patient has remained clinically stable. He is hemodynamically stable and maintaining appropriate oxygen saturations on room air. [facility] Medical History High cholesterol HTN (hypertension) Home Medications ?Medication ?Instructions ?Recorded ?Last Taken ?Type albuterol sulfate 90 mcg/actuation 2 puff inhalation Q4H PRN PRN cough 01/17/24 Unknown History aerosol inhaler atorvastatin 20 mg tablet 20 mg PO QHS 01/17/24 Unknown History clopidogrel 75 mg tablet 75 mg PO DAILY 01/17/24 Unknown History lisinopril 20 1 tab PO DAILY 01/17/24 Unknown History mg-hydrochlorothiazide 25 mg tablet loratadine 10 mg tablet (Claritin) 10 mg PO DAILY 01/17/24 Unknown History sildenafil 100 mg tablet 100 mg PO Q24H PRN sexual activity 01/17/24 Unknown History sildenafil 50 mg tablet 50 mg PO DAILY PRN sexual activity 01/17/24 Unknown History Allergy/AdvReac Type Severity Reaction Status Date / Time Penicillins Allergy Unknown Verified 01/17/24 11:55 Social History Smoking Status: Former smoker ROS ROS Narrative 10 systems were reviewed with pertinent positives as noted in the HPI above. Physical Exam Const alert, oriented x3 and no apparent distress General Appearance: cooperative HEENT normocephalic and head/scalp atraumatic Eyes PERRL, EOMs intact bilaterally and conjunctivae normal Neck supple General: trachea midline Chest inspection of chest normal Resp normal respiratory effort Auscultation: diminished lung sounds; Negative for rales, rhonchi or wheezes Cardio regular rate and regular rhythm GI normal to inspection, nondistended, normoactive bowel sounds Extremity no clubbing, cyanosis or edema Skin no rashes or lesions noted Neuro CN's II-XII intact bilaterally, moves all extremities and no focal motor deficits Psych cooperative and affect normal Lab / Micro Data 01/18/24 03:50 01/18/24 03:50 Labs: Laboratory Results - last 24 hr 01/17/24 12:13: WBC 18.2 H, RBC 4.32 L, Hgb 13.5, Hct 40.4, MCV 93.5, MCH 31.3, MCHC 33.4, RDW Std Deviation 45.1 H, RDW Coeff of Ebony 13.0, Plt Count 181, MPV 11.3, Immature Gran % (Auto) 0.600, Neut % (Auto) 83.4 H, Lymph % (Auto) 5.1 L, [place] % (Auto) 10.6 H, Eos % (Auto) 0.1, Baso % (Auto) 0.2, Absolute Neuts (auto) 15.2 H, Absolute Lymphs (auto) 0.92, Nucleated RBC % 0, Differential Comment COMMENT, Diff Path Review June, PT 15.5 H, INR 1.2, APTT 29.1, Sodium 136, Potassium 4.3, Chloride 104, Carbon Dioxide 24.0, Anion Gap 9, BUN 43 H, Creatinine 2.27 H, Estim Creat Clear Calc 30.37, Est GFR (MDRD) Af Amer 37 L, Est GFR (MDRD) Non-Af 30 L, BUN/Creatinine Ratio 18.9, Glucose 131 H, Lactic Acid 2.0, Calcium 9.1, Total Bilirubin 1.20 H, AST 29, ALT 22, Alkaline Phosphatase 71, Troponin I High Sens 27, B-Natriuretic Peptide 269.2 H, Total Protein 7.1, Albumin 3.0 L, Globulin 4.1, Albumin/Globulin Ratio 0.7 L, TSH 1.360 01/17/24 17:20: Lactic Acid 0.9 01/18/24 03:50: WBC 12.0 H, RBC 3.48 L, Hgb 10.9 L, Hct 32.6 L, MCV 93.7, MCH 31.3, MCHC 33.4, RDW Std Deviation 45.1 H, RDW Coeff of Ebony 13.1, Plt Count 143 L, MPV 10.7, Immature Gran % (Auto) 0.700, Neut % (Auto) 77.6 H, Lymph % (Auto) 10.3 L, [place] % (Auto) 10.4 H, Eos % (Auto) 0.8, Baso % (Auto) 0.2, Absolute Neuts (auto) 9.3 H, Absolute Lymphs (auto) 1.23, Nucleated RBC % 0, Sodium 136, Potassium 3.3 L, Chloride 103, Carbon Dioxide 24.0, Anion Gap 9, BUN 37 H, Creatinine 1.61 H, Estim Creat Clear Calc 51.50, Est GFR (MDRD) Af Amer 54 L, Est GFR (MDRD) Non-Af 45 L, BUN/Creatinine Ratio 23.0 H, Glucose 144 H, Calcium 8.5, Total Bilirubin 0.70, AST 13 L, ALT 20, Alkaline Phosphatase 60, Total Protein 6.1 L, Albumin 2.6 L, Globulin 3.5, Albumin/Globulin Ratio 0.7 L Micro: Microbiology 01/17/24 15:58 Sputum, Expectorated/Coughed Respiratory Culture - Preliminary Appears to be normal respiratory lili. Further studies to follow. 01/17/24 15:58 Urine Catheter - Catheter Urine Culture - Preliminary Culture exhibits no growth. 01/17/24 16:52 Mucosa - Nasopharyngeal Respiratory Panel (PCR) - Final 01/17/24 17:00 Nasal Secretion MRSA (PCR) - Final 01/17/24 17:00 Urine Catheter - Catheter Legionella Antigen - Final 01/17/24 17:00 Urine Catheter - Catheter Streptococcus pneumoniae Antigen (M - Final 01/17/24 12:13 Mucosa - Nose SARS-CoV-2, Influenza & RSV (PCR) - Final Imaging Radiology Impression Chest X-Ray 01/17/24 12:07 IMPRESSION: Hyperinflation. Bibasilar infiltrates. Electronically Signed: Harjit Ulloa MD at 13:16 EST , Charges/Coding Visit Charges Inpatient E&M: 85993 Init Hosp L3
[2024-01-18 14:19] LABS: Pathologist Review Reviewed
--- NOTE | 2024-01-18 17:31 | NURSING ---
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 aware of room assignment and pt belongings packed up and ready.
[2024-01-18] MEDS: Atorvastatin Calcium 20 MG Tablet PO (20:35)
[2024-01-19] VITALS (8 sets, daily range): BP systolic 105–126; BP diastolic 51–69; PULSE 72–89; RESP 16–20; TEMP 36.2–36.8; O2SAT 92–95; BMI 30.9
[2024-01-19] MEDS: Ipratropium/Albuterol Sulfate 3 ML AMPUL.NEB INHALATION ×4 (01:05→19:00)
[2024-01-19] MEDS: levoFLOXacin IV 750 MG/150 ML BAG 100 MG IV (08:18)
[2024-01-19] MEDS: Heparin Injection (Vial) 5,000 UNIT/ML VIAL 5000 UNIT SC ×2 (08:25→20:31)
[2024-01-19] MEDS: Loratadine 10 MG Tablet PO (08:25)
[2024-01-19] MEDS: Clopidogrel Bisulfate 75 MG Tablet PO (08:26)
[2024-01-19] MEDS: guaiFENesin 1,200 MG Tablet 1200 MG PO ×2 (09:33→20:31)
--- NOTE | 2024-01-19 09:48 | DCINST_ITS ---
Discharge Instructions Diet Discharge Diet: No restrictions Dressing / Incision Discharge Activity: Return to Normal Activity Weight Bearing Status: Weight bearing as tolerated Dressing / Incision Call your doctor if you observe: Fever of 101 or Higher, Coldness, Increased Pain, Numbness or Tingling, Change in Color, Inability to urinate, Inability to have a bowel movement, Shortness of breath, Dizziness, Fainting spells, Swelling in the ankles, Chest pain, Prolonged hiccupping, Increased palpitations (irregular heartbeat) and Calf discomfort Follow Up Care When: IN 2 WEEKS Test Results: Test results from this visit will be discussed in further detail at your follow- up appointment, if applicable. Discharge Plan Admission Admit Date/Time: 01/17/24 14:26 Attending Provider: Dereck Wynn Primary Care Provider: Chris Byrd Consulting Providers: Ginette Mendieta; Adria Preciado; Nicholas Trujillo; Andre Montesinos; Siva Perdomo; Jayden Strauss; Mikey Brian; Wes Torres; Tova Gill; Dagoberto Gottlieb; Leonard Spear; Jose Roberto Shields; Maira Araujo; Terence Vinson; Antoni Zheng; Florentino Mccarthy; Bhupendra Winston; Salo Matta; Giovanni Hodges; Tylor Stone; Aaron Torres; Joseph Montalvo Discharge Orders/Prescriptions Prescriptions: No Action atorvastatin 20 mg tablet 20 mg PO QHS clopidogrel 75 mg tablet 75 mg PO DAILY lisinopril-hydrochlorothiazide 20-25 mg tablet 1 tab PO DAILY sildenafil 100 mg tablet 100 mg PO Q24H PRN (Reason: sexual activity) albuterol sulfate 90 mcg/actuation HFA aerosol inhaler 2 puff INHALATION Q4H PRN PRN (Reason: cough) sildenafil 50 mg tablet 50 mg PO DAILY PRN (Reason: sexual activity) loratadine [Claritin] 10 mg tablet 10 mg PO DAILY Referrals / Follow Up: Chris Byrd MD [Primary Care Provider] -
--- NOTE | 2024-01-19 10:46 | US_ITS ---
INDICATION: GREGOR on CKD 3 EXAMINATION: Ultrasound US Kidney(s) complete (eg, kidneys and bladder) TECHNIQUE: Eduardo scale and color doppler images were obtained of the kidneys. COMPARISON: No relevant prior comparison study available FINDINGS: RIGHT KIDNEY: 11.9 cm length. There is no hydronephrosis. Simple cyst at the lower pole: 4.0 x 3.5 x 3.9 cm. LEFT KIDNEY: 11.7 cm length. There is no hydronephrosis. No shadowing calculus, focal lesion or perinephric collection is demonstrated. URINARY BLADDER: Mildly distended. Bladder volume 195 mL. Ureteral jets were not visualized. US/Kidney and Bladder IMPRESSION: No hydronephrosis. Electronically Signed: Tila Muhammad MD at 4:59 EST ,
[2024-01-19] MEDS: Potassium Chloride Oral Tablet 20 MEQ 40 MEQ PO ×2 (11:03→14:44)
[2024-01-19 11:13] LABS: Absolute Lymphocyte Count 1.04 X10^3/uL (0.83-4.51); Absolute Neutrophil Count 7.6 X10^3/uL (2.0-7.7); Basophil# 0.04 X10^3/uL; Basophil% 0.4 % (0-1); Eosinophil# 0.24 X10^3/uL; Eosinophils% 2.4 % (0-5); Hematocrit 34.8 % (40-54); Hemoglobin 11.5 g/dL (13.0-16.5); Lymphocyte # 1.04 X10^3/ul (0.83-4.51); Lymphocyte % 10.3 % (19-41); Mean Corpuscular Hgb 31.3 pg (27.0-32.0); Mean Corpuscular Volume 94.8 fL (80-94); Mean Platelet Vol. 10.7 fl (6.2-12.0); Monocyte# 1.07 X10^3/uL; Monocyte% 10.6 % (0-10); NRBC Flagged by Analyzer 0 % (0-5); Neutrophil % 75.6 % (47-70); Platelet Count 176 K/mm3 (150-450); RBC Distribution Width CV 12.9 % (11.6-14.6); RBC Distribution Width SD 45.1 fl (35.1-43.9); Red Blood Count 3.67 M/mm3 (4.6-6.2); White Blood Count 10.1 K/mm3 (4.4-11.0)
[2024-01-19 12:20] LABS: Anion Gap 6 (5-15); BUN 18 mg/dL (7-18); BUN/Creat Ratio 16.1 RATIO (10-20); Calcium,Total 8.9 mg/dL (8.5-10.1); Chloride 103 mmol/L (98-107); Creatinine, Serum 1.12 mg/dL (0.70-1.30); EST Glomerular Filtration Rate 68 mL/min (>60); Est Glom Filt Rate - Afr Amer 83 mL/min (>60); Estimated Creatinine Clearance 74.17 ml/min; Glucose 117 mg/dL (74-106); Potassium 3.4 mmol/L (3.5-5.1); Sodium Level 138 mmol/L (136-145)
--- NOTE | 2024-01-19 16:25 | PCM.PN.HOSP ---
Reason for Visit Reason for Visit: Diagnoses Sepsis, unspecified organism (01/17/24) Pneumonia, unspecified organism (01/17/24) Acute kidney failure, unspecified (01/17/24) Objective Data Objective Data Vital Signs: Vital Signs Temp Pulse Resp BP Pulse Ox O2 Del Method 97.1 F L 81 18 116/61 95 Room Air 01/19/24 15:06 01/19/24 15:06 01/19/24 15:06 01/19/24 15:06 01/19/24 15:06 01/19/24 15:06 Oxygen Delivery Method Room Air Weight: 228 lb 2.855 oz Body Mass Index (BMI) 30.9 Intake & Output: Intake and Output for Last 24 Hours 01/17/24 01/18/24 01/19/24 23:59 23:59 23:59 Intake Total 2150 / 2150 750 / 750 Output Total 400 / 400 750 / 1225 475 / 475 Balance 1750 / 1750 -750 / -1225 275 / 275 Lab / Micro Data 01/19/24 11:04 01/19/24 11:04 Labs: Laboratory Results - last 24 hr 01/19/24 11:04: WBC 10.1, RBC 3.67 L, Hgb 11.5 L, Hct 34.8 L, MCV 94.8 H, MCH 31.3, MCHC 33.0, RDW Std Deviation 45.1 H, RDW Coeff of Ebony 12.9, Plt Count 176, MPV 10.7, Immature Gran % (Auto) 0.700, Neut % (Auto) 75.6 H, Lymph % (Auto) 10.3 L, [place] % (Auto) 10.6 H, Eos % (Auto) 2.4, Baso % (Auto) 0.4, Absolute Neuts (auto) 7.6, Absolute Lymphs (auto) 1.04, Nucleated RBC % 0, Sodium 138, Potassium 3.4 L, Chloride 103, Carbon Dioxide 29.0, Anion Gap 6, BUN 18, Creatinine 1.12, Estim Creat Clear Calc 74.17, Est GFR (MDRD) Af Amer 83, Est GFR (MDRD) Non-Af 68, BUN/Creatinine Ratio 16.1, Glucose 117 H, Calcium 8.9 Micro: Microbiology 01/17/24 12:13 Blood Culture (Wb) - Right Hand Blood Culture - Preliminary No growth in 48 hours. 01/17/24 15:58 Sputum, Expectorated/Coughed Gram Stain - Final 01/17/24 15:58 Sputum, Expectorated/Coughed Respiratory Culture - Preliminary Appears to be normal respiratory lili. Further studies to follow. 01/17/24 15:58 Urine Catheter - Catheter Urine Culture - Final Culture exhibits no growth. 01/17/24 16:52 Mucosa - Nasopharyngeal Respiratory Panel (PCR) - Final 01/17/24 17:00 Nasal Secretion MRSA (PCR) - Final 01/17/24 17:00 Urine Catheter - Catheter Legionella Antigen - Final 01/17/24 17:00 Urine Catheter - Catheter Streptococcus pneumoniae Antigen (M - Final 01/17/24 12:13 Mucosa - Nose SARS-CoV-2, Influenza & RSV (PCR) - Final Physical Exam Narrative Seen and examined. Patient is still subjectively feels short of breath more on mild exertion going to bathroom. Pulse ox 95% on room air. Patient has been gradually getting sick for last 1 week but symptoms were more prominent for last 4 days with brownish sputum productive cough, low-grade fever and chills and shortness of breath. Patient is still coughing and bringing up phlegm. No history of DVT. History of smoking started at the age of 17 and quit a year ago. 55 pack years of smoke Physical exam: General: Alert, Oriented x3, Cooperative HEENT: Atraumatic, PERRLA, EOMI, Normocephalic Oral: Oral mucosa dry no Gingival or Mucosal Lesions/ Ulcerations Neck: Supple, No JVD, Negative Carotid Bruits Chest wall/Lungs: Air entry diminished in bilateral lung bases. Bilateral coarse crepitations. Mild tachypnea. No hypoxia Cardiovascular: Regular rate, Regular Rhythm, Normal S1, Normal S2, No M/G/R Abdomen: Bowel Sounds Present, Soft, Non Tender, Non-Distended : No dysuria. No renal angle tenderness. No suprapubic tenderness. Extremities: No edema, Capillary Refill Less than 3 Seconds Skin: No rashes, No breakdown Musculoskeletal: No Tenderness to Palpation of Joints or Extremities. Neurological: Cranial nerves II-XII grossly intact, DTR 2+/4. No acute focal neurological deficit. Psych/Mental Status: Normal Affect, Appropriate. Exam: Assessment & Plan Assessment/Plan (1) Sepsis: PLAN: Plan 73-year-old gentleman admitted with productive cough with yellow-colored sputum, shortness of breath, decreased appetite, generalized weakness and fever for about 1 week. In ED, his BP was low, dizzy and tachycardic with creatinine 2.27 and WBC count of 18K and x-ray suggestive of pneumonia. The patient's had been sick with similar symptoms but getting better. # Suspected sepsis secondary to community-acquired pneumonia: Patient is being admitted in ICU as per protocol. The patient presented with sepsis with clinical indicators of due to fever, tachycardia, tachypnea, leukocytosis and shortness of breath with acute sepsis-related organ dysfunction as evidenced by SBP less than 90 mmHg x 2 and GREGOR. -Patient received 30 cc/kg of IV fluids but blood pressures remain borderline and patient was tachycardic to send feeling placed in the ED -Patient started on broad-spectrum IV antibiotic Levaquin. Infectious workup including triple PCR for SARS-CoV-2, flu and RSV are negative, respiratory panel and urinary antigens are negative. DuoNeb as needed. Blood cultures x 2 pending. On Mucinex 01/17: BP is still on lower side in 90s but MAP more than 65. Did not require vasopressor. Patient has 55 pack years of smoking but denies history of COPD/emphysema probably never had PFT. 01/18: Leukocytosis resolved. BP normotensive. Continue IV Levaquin. Blood culture negative for 48 hours. Sputum prelim appears normal respiratory lili. Urine culture no growth. MRSA nasal screen negative. # Suspect GREGOR: Last creatinine level was 1.1 in December 2011. Admit creatinine 2.27 and BUN 43 -Avoid nephrotoxic agents, treat underlying infection 01/17: Creatinine shows improvement 1.61 01/18: Further improvement in creatinine 1.12. GREGOR resolved. Mild hypokalemia potassium replaced #Hypertension -Hold home medications given above 01/18: BP normotensive continue holding antihypertensive medications blood pressure # History of carotid stenosis -Continue aspirin and Plavix #DVT ppx: Heparin subcu Microbiology Past 72 Hours 01/17/24 12:13 Blood Culture (Wb) - Right Hand Blood Culture - Preliminary No growth in 48 hours. 01/17/24 15:58 Sputum, Expectorated/Coughed Gram Stain - Final 01/17/24 15:58 Sputum, Expectorated/Coughed Respiratory Culture - Preliminary Appears to be normal respiratory lili. Further studies to follow. 01/17/24 15:58 Urine Catheter - Catheter Urine Culture - Final Culture exhibits no growth. 01/17/24 16:52 Mucosa - Nasopharyngeal Respiratory Panel (PCR) - Final 01/17/24 17:00 Nasal Secretion MRSA (PCR) - Final 01/17/24 17:00 Urine Catheter - Catheter Legionella Antigen - Final 01/17/24 17:00 Urine Catheter - Catheter Streptococcus pneumoniae Antigen (M - Final 01/17/24 12:13 Mucosa - Nose SARS-CoV-2, Influenza & RSV (PCR) - Final Laboratory Results 01/19/24 11:04: WBC 10.1, RBC 3.67 L, Hgb 11.5 L, Hct 34.8 L, MCV 94.8 H, MCH 31.3, MCHC 33.0, RDW Std Deviation 45.1 H, RDW Coeff of Ebony 12.9, Plt Count 176, MPV 10.7, Immature Gran % (Auto) 0.700, Neut % (Auto) 75.6 H, Lymph % (Auto) 10.3 L, [place] % (Auto) 10.6 H, Eos % (Auto) 2.4, Baso % (Auto) 0.4, Absolute Neuts (auto) 7.6, Absolute Lymphs (auto) 1.04, Nucleated RBC % 0, Sodium 138, Potassium 3.4 L, Chloride 103, Carbon Dioxide 29.0, Anion Gap 6, BUN 18, Creatinine 1.12, Estim Creat Clear Calc 74.17, Est GFR (MDRD) Af Amer 83, Est GFR (MDRD) Non-Af 68, BUN/Creatinine Ratio 16.1, Glucose 117 H, Calcium 8.9 Charges/Coding Visit Charges Inpatient E&M: 39477 Subs Hosp L2
[2024-01-19] MEDS: Atorvastatin Calcium 20 MG Tablet PO (20:31)
[2024-01-20] MEDS: Ipratropium/Albuterol Sulfate 3 ML AMPUL.NEB INHALATION ×2 (01:38→07:18)
[2024-01-20 01:39] VITALS: PULSE 73; RESP 16
[2024-01-20 03:24] VITALS: BP 110/58; PULSE 86; RESP 16; TEMP 36.3; O2SAT 94
[2024-01-20 05:01] VITALS: BMI 30.6
[2024-01-20 07:18] VITALS: PULSE 87; RESP 17
[2024-01-20 08:56] VITALS: BP 130/58; PULSE 81; RESP 18; TEMP 36.2; O2SAT 93
[2024-01-20] MEDS: guaiFENesin 1,200 MG Tablet 1200 MG PO (08:58)
[2024-01-20] MEDS: Loratadine 10 MG Tablet PO (09:02)
[2024-01-20] MEDS: Clopidogrel Bisulfate 75 MG Tablet PO (09:02)
[2024-01-20] MEDS: Heparin Injection (Vial) 5,000 UNIT/ML VIAL 5000 UNIT SC (09:02)
[2024-01-20] MEDS: levoFLOXacin IV 750 MG/150 ML BAG 100 MG IV (09:02)
[2024-01-20] MEDS: Potassium Chloride Oral Tablet 20 MEQ 40 MEQ PO (09:02)
--- NOTE | 2024-01-20 09:52 | DCINST_ITS ---
Discharge Instructions Diet Discharge Diet: Low fat / Low cholesterol and 2000 mg Sodium Diet DC O2, CPAP, BIPAP needs Additional Home O2 Discharge instructions: No Dressing / Incision Discharge Activity: Return to Normal Activity Weight Bearing Status: Weight bearing as tolerated Dressing / Incision Call your doctor if you observe: Fever of 101 or Higher, Coldness, Increased Pain, Numbness or Tingling, Change in Color, Inability to urinate, Inability to have a bowel movement, Shortness of breath, Dizziness, Fainting spells, Swelling in the ankles, Chest pain, Prolonged hiccupping, Increased palpitations (irregular heartbeat) and Calf discomfort Follow Up Care When: IN 2 WEEKS Test Results: Test results from this visit will be discussed in further detail at your follow- up appointment, if applicable. Discharge Plan Admission Admit Date/Time: 01/17/24 14:26 Attending Provider: Dereck Wynn Primary Care Provider: Chris Byrd Consulting Providers: Ginette Mendieta; Adria Preciado; Nicholas Trujillo; Andre Montesinos; Siva Perdomo; Jayden Strauss; Mikey Brian; Wes Torres; Tova Gill; Dagoberto Gottlieb; Leonard Spear; Jose Roberto Shields; Maira Araujo; Terence Vinson; Antoni Zheng; Florentino Mccarthy; Bhupendra Winston; Salo Matta; Giovanni Hodges; Tylor Stone; Aaron Torres; Joseph Montalvo Instructions Additional Instructions / Restrictions: Continue incentive spirometry and PEP for 1 week Follow-up in pulmonary clinic for PFT Discharge Orders/Prescriptions Prescriptions: New guaifenesin [Mucus Relief ER] 1,200 mg Tablet Extended Release 12hr 1,200 mg PO BID 7 Days Qty: 14 0RF levofloxacin 500 mg tablet 500 mg PO DAILY 3 Days Qty: 3 0RF Continued atorvastatin 20 mg tablet 20 mg PO QHS clopidogrel 75 mg tablet 75 mg PO DAILY sildenafil 100 mg tablet 100 mg PO Q24H PRN (Reason: sexual activity) albuterol sulfate 90 mcg/actuation HFA aerosol inhaler 2 puff INHALATION Q4H PRN PRN (Reason: cough) sildenafil 50 mg tablet 50 mg PO DAILY PRN (Reason: sexual activity) loratadine [Claritin] 10 mg tablet 10 mg PO DAILY lisinopril-hydrochlorothiazide 20-25 mg tablet 1 tab PO DAILY 30 Days Qty: 0 0RF Rx Instructions: Start from 01/21/2024 Referrals / Follow Up: Siva Perdomo DO [Med Staff - Active Staff] - Within 1 Month (For PFT) Chris Byrd MD [Primary Care Provider] - Disposition Disposition (needs filled in before D/C Order can be placed): Home, Self Care
--- NOTE | 2024-01-20 10:50 | DS.PCM_ITS ---
Providers Date of Admission: 01/17/24 Date of Discharge: 01/20/24 Primary Care Physician: Dr. 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 In ED, his BP was low, dizzy and tachycardic with creatinine 2.27 and WBC count of 18K and x-ray suggestive of pneumonia. The patient's had been sick with similar symptoms but getting better. # Suspected sepsis secondary to community-acquired pneumonia: Patient is being admitted in ICU as per protocol. The patient presented with sepsis with clinical indicators of due to fever, tachycardia, tachypnea, leukocytosis and shortness of breath with acute sepsis-related organ dysfunction as evidenced by SBP less than 90 mmHg x 2 and GREGOR. -Patient received 30 cc/kg of IV fluids but blood pressures remain borderline and patient was tachycardic to send feeling placed in the ED -Patient started on broad-spectrum IV antibiotic Levaquin. Infectious workup including triple PCR for SARS-CoV-2, flu and RSV are negative, respiratory panel and urinary antigens are negative. DuoNeb as needed. Blood cultures x 2 pending. On Mucinex 01/17: BP is still on lower side in 90s but MAP more than 65. Did not require vasopressor. Patient has 55 pack years of smoking but denies history of COPD/emphysema probably never had PFT. 01/18: Leukocytosis resolved. BP normotensive. Continue IV Levaquin. Blood culture negative for 48 hours. Sputum prelim appears normal respiratory lili. Urine culture no growth. MRSA nasal screen negative. 01/19: Vitals in normal range. Pulse ox 93% on room air. Patient is feeling good. Patient is discharged on 3 more days of Levaquin to complete total of 7 days. # Suspect GREGOR: Last creatinine level was 1.1 in December 2011. Admit creatinine 2.27 and BUN 43 -Avoid nephrotoxic agents, treat underlying infection 01/17: Creatinine shows improvement 1.61 01/18: Further improvement in creatinine 1.12. GREGOR resolved. Mild hypokalemia potassium replaced 01/19: GREGOR resolved. #Hypertension -Hold home medications given above 01/18: BP normotensive continue holding antihypertensive medications blood pressure 01/19: Antihypertensive medication to resume from tomorrow a.m. advised BP monitoring before taking blood pressure pill home # History of carotid stenosis -Continue aspirin and Plavix #DVT ppx: Heparin subcu Microbiology Past 72 Hours 01/17/24 12:13 Blood Culture (Wb) - Right Hand Blood Culture - Preliminary No growth in 48 hours. 01/17/24 15:58 Sputum, Expectorated/Coughed Gram Stain - Final 01/17/24 15:58 Sputum, Expectorated/Coughed Respiratory Culture - Preliminary Appears to be normal respiratory lili. Further studies to follow. 01/17/24 15:58 Urine Catheter - Catheter Urine Culture - Final Culture exhibits no growth. 01/17/24 16:52 Mucosa - Nasopharyngeal Respiratory Panel (PCR) - Final 01/17/24 17:00 Nasal Secretion MRSA (PCR) - Final 01/17/24 17:00 Urine Catheter - Catheter Legionella Antigen - Final 01/17/24 17:00 Urine Catheter - Catheter Streptococcus pneumoniae Antigen (M - Final 01/17/24 12:13 Mucosa - Nose SARS-CoV-2, Influenza & RSV (PCR) - Final Laboratory Results 01/19/24 11:04: WBC 10.1, RBC 3.67 L, Hgb 11.5 L, Hct 34.8 L, MCV 94.8 H, MCH 31.3, MCHC 33.0, RDW Std Deviation 45.1 H, RDW Coeff of Ebony 12.9, Plt Count 176, MPV 10.7, Immature Gran % (Auto) 0.700, Neut % (Auto) 75.6 H, Lymph % (Auto) 10.3 L, [place] % (Auto) 10.6 H, Eos % (Auto) 2.4, Baso % (Auto) 0.4, Absolute Neuts (auto) 7.6, Absolute Lymphs (auto) 1.04, Nucleated RBC % 0, Sodium 138, P otassium 3.4 L, Chloride 103, Carbon Dioxide 29.0, Anion Gap 6, BUN 18, Creatinine 1.12, Estim Creat Clear Calc 74.17, Est GFR (MDRD) Af Amer 83, Est GFR (MDRD) Non-Af 68, BUN/Creatinine Ratio 16.1, Glucose 117 H, Calcium 8.9 Medications at Discharge Home Medications albuterol sulfate 90 mcg/actuation aerosol inhaler 2 puff inhalation Q4H PRN PRN cough 01/17/24 atorvastatin 20 mg tablet 20 mg PO QHS 01/17/24 clopidogrel 75 mg tablet 75 mg PO DAILY 01/17/24 loratadine 10 mg tablet (Claritin) 10 mg PO DAILY 01/17/24 sildenafil 100 mg tablet 100 mg PO Q24H PRN sexual activity 01/17/24 sildenafil 50 mg tablet 50 mg PO DAILY PRN sexual activity 01/17/24 guaifenesin 1,200 mg tablet, extended release 12 hr (Mucus Relief ER) 1,200 mg PO BID 7 days #14 tabs 01/20/24 levofloxacin 500 mg tablet 500 mg PO DAILY 3 days #3 tabs 01/20/24 lisinopril 20 mg-hydrochlorothiazide 25 mg tablet 1 tab PO DAILY 30 days #0 tabs 01/20/24 Physical Exam Narrative Seen and examined. Shortness of breath is resolved. No history of DVT. History of smoking started at the age of 17 and quit a year ago. 55 pack years of smoke Physical exam: General: Alert, Oriented x3, Cooperative HEENT: Atraumatic, PERRLA, EOMI, Normocephalic Oral: Oral mucosa dry no Gingival or Mucosal Lesions/ Ulcerations Neck: Supple, No JVD, Negative Carotid Bruits Chest wall/Lungs: Air entry diminished in bilateral lung bases. Mild fine basal crepitations. No hypoxia or tachypnea. Cardiovascular: Regular rate, Regular Rhythm, Normal S1, Normal S2, No M/G/R Abdomen: Bowel Sounds Present, Soft, Non Tender, Non-Distended : No dysuria. No renal angle tenderness. No suprapubic tenderness. Extremities: No edema, Capillary Refill Less than 3 Seconds Skin: No rashes, No breakdown Musculoskeletal: No Tenderness to Palpation of Joints or Extremities. Neurological: Cranial nerves II-XII grossly intact, DTR 2+/4. No acute focal neurological deficit. Psych/Mental Status: Normal Affect, Appropriate. Exam: Weight / BMI Weight Weight: 225 lb 15.581 oz Body Mass Index (BMI) 30.6 ABG / Lab / Microbiology Data 01/19/24 11:04 01/19/24 11:04 Laboratory: Laboratory Results - last 24 hr 01/19/24 11:04: WBC 10.1, RBC 3.67 L, Hgb 11.5 L, Hct 34.8 L, MCV 94.8 H, MCH 31.3, MCHC 33.0, RDW Std Deviation 45.1 H, RDW Coeff of Ebony 12.9, Plt Count 176, MPV 10.7, Immature Gran % (Auto) 0.700, Neut % (Auto) 75.6 H, Lymph % (Auto) 10.3 L, [place] % (Auto) 10.6 H, Eos % (Auto) 2.4, Baso % (Auto) 0.4, Absolute Neuts (auto) 7.6, Absolute Lymphs (auto) 1.04, Nucleated RBC % 0, Sodium 138, P otassium 3.4 L, Chloride 103, Carbon Dioxide 29.0, Anion Gap 6, BUN 18, Creatinine 1.12, Estim Creat Clear Calc 74.17, Est GFR (MDRD) Af Amer 83, Est GFR (MDRD) Non-Af 68, BUN/Creatinine Ratio 16.1, Glucose 117 H, Calcium 8.9 Microbiology: Microbiology 01/17/24 15:58 Sputum, Expectorated/Coughed Gram Stain - Final 01/17/24 15:58 Sputum, Expectorated/Coughed Respiratory Culture - Final 01/17/24 12:13 Blood Culture (Wb) - Right Hand Blood Culture - Preliminary No growth in 48 hours. 01/17/24 15:58 Urine Catheter - Catheter Urine Culture - Final Culture exhibits no growth. 01/17/24 16:52 Mucosa - Nasopharyngeal Respiratory Panel (PCR) - Final 01/17/24 17:00 Nasal Secretion MRSA (PCR) - Final 01/17/24 17:00 Urine Catheter - Catheter Legionella Antigen - Final 01/17/24 17:00 Urine Catheter - Catheter Streptococcus pneumoniae Antigen (M - Final 01/17/24 12:13 Mucosa - Nose SARS-CoV-2, Influenza & RSV (PCR) - Final Radiography Diagnostic Testing: Radiology Impression Renal Ultrasound 01/19/24 10:46 IMPRESSION: No hydronephrosis. Electronically Signed: Tila Muhammad MD at 4:59 EST , D/C Instructions Discharge Diet: Low fat / Low cholesterol and 2000 mg Sodium Diet Weight Bearing Status: Weight bearing as tolerated Call your doctor if you observe: Fever of 101 or Higher, Coldness, Increased Pain, Numbness or Tingling, Change in Color, Inability to urinate, Inability to have a bowel movement, Shortness of breath, Dizziness, Fainting spells, Swelling in the ankles, Chest pain, Prolonged hiccupping, Increased palpitations (irregular heartbeat) and Calf discomfort DC O2, CPAP, BIPAP Needs Additional Home O2 Discharge instructions: No DC home with Oxygen: No When: IN 2 WEEKS Meaningful Use Info Meaningful Use Meaningful Use Diagnoses (Choose all that apply): None applicable Ischemic Stroke Statin Dosing Therapy Reference: STATIN DOSE THERAPY REFERENCE: * Patients > 75 years receive moderate or high dose statin therapy. * Patients 75 years or YOUNGER should receive HIGH intensity statin dose unless contraindicated. You will be required to document reason for non-treatment if statin daily dose does not meet guidelines. HIGH DOSE STATIN THERAPY DAILY Atorvastatin > than or = to 40 mg Rosuvastatin > than or = to 20 mg Amlodipine + Atorvastatin > than or = to 2.5/40 mg Ezetimibe + Simvastatin 10/80 mg Simvastatin 80mg Discharge Plan Admission Admit Date/Time: 01/17/24 14:26 Primary Reason for Your Visit: Pneumonia Attending Provider: Dereck Wynn Primary Care Provider: Chris Byrd Consulting Providers: Ginette Mendieta; Adria Preciado; Nicholas Trujillo; Andre Montesinos; Siva Perdomo; Jayden Strauss; Mikey Brian; Wes Torres; Tova Gill; Dagoberto Gottlieb; Leonard Spear; Jose Roberto Shields; Maira Araujo; Terence Vinson; Antoni Zheng; Florentino Mccarthy; Bhupendra Winston; Salo Matta; Giovanni Hodges; Tylor Stone; Aaron Torres; Joseph Montalvo Instructions Additional Instructions / Restrictions: Continue incentive spirometry and PEP for 1 week Follow-up in pulmonary clinic for PFT Advised home BP monitoring before taking antihypertensive medication/lisinopril?HCT Discharge Orders/Prescriptions Prescriptions: New guaifenesin [Mucus Relief ER] 1,200 mg Tablet Extended Release 12hr 1,200 mg PO BID 7 Days Qty: 14 0RF levofloxacin 500 mg tablet 500 mg PO DAILY 3 Days Qty: 3 0RF Continued atorvastatin 20 mg tablet 20 mg PO QHS clopidogrel 75 mg tablet 75 mg PO DAILY sildenafil 100 mg tablet 100 mg PO Q24H PRN (Reason: sexual activity) albuterol sulfate 90 mcg/actuation HFA aerosol inhaler 2 puff INHALATION Q4H PRN PRN (Reason: cough) sildenafil 50 mg tablet 50 mg PO DAILY PRN (Reason: sexual activity) loratadine [Claritin] 10 mg tablet 10 mg PO DAILY lisinopril-hydrochlorothiazide 20-25 mg tablet 1 tab PO DAILY 30 Days Qty: 0 0RF Rx Instructions: Start from 01/21/2024 Referrals / Follow Up: Siva Perdomo DO [Med Staff - Active Staff] - Within 1 Month (For PFT) Chris Byrd MD [Primary Care Provider] - Disposition Disposition (needs filled in before D/C Order can be placed): Home, Self Care Charges/Coding Visit Charges Inpatient E&M: 37264 Disch Hosp >30min
[2024-01-20 11:33] VITALS: O2SAT 89; O2SAT 94
== END 2024-01-20 13:28 | disposition home or self-care (01) | DRG 871 ==
LOC: ED 14:15 → ICU 16:20 → PCU 01-18 17:57
PROVIDERS: Admitting Provider Internal Medicine; Emergency Provider Emergency Medicine; PCP Internal Medicine; Referring Provider Emergency Medicine; Visit Provider Internal Medicine
DX: A41.9 Sepsis, unspecified organism (principal); J18.9 Pneumonia, unspecified organism; N17.9 Acute kidney failure, unspecified; I10 Essential (primary) hypertension; E78.00 Pure hypercholesterolemia, unspecified; Z79.82 Long term (current) use of aspirin; Z79.02 Long term (current) use of antithrombotics/antiplatelets; Z87.891 Personal history of nicotine dependence; Z79.899 Other long term (current) drug therapy; Z86.79 Personal history of other diseases of the circulatory system
CPT/HCPCS: 36415; 51702; 71045; 76770; 80048; 80053; 83605; 83880; 84443; 84484; 85025; 85610; 85730; 87040; 87070; 87086; 87205; 87449; 87631; 87633; 87641; 93005; 93306; 94640; 94762; 97802; 99285; J7030; Q9957; A4216; C8929

== ENCOUNTER → 2024-09-16 | Outpatient (CLI) | payer MEDICARE, OTHER, SELFPAY ==
--- NOTE | 2024-09-16 08:35 | CDU_ITS ---
Reason For Study Reason For Study: CAROTID STENOSIS Rt. Velocities/BP Lt. Velocities/BP Prox CCA 68.6/12.8 cm/sec. Prox CCA 51.7/16.1 cm/sec. Mid CCA 79.9/19.5 cm/sec. Mid CCA 51.7/21.8 cm/sec. Dist CCA 82.8/19.5 cm/sec. Dist CCA 50.6/13.8 cm/sec. Prox ICA 133.2/23.6 cm/sec. Prox ICA 51.9/11.2 cm/sec. Mid ICA 75.6/17.5 cm/sec. Mid ICA 54.7/18.8 cm/sec. Dist ICA 80.9/28.1 cm/sec. Dist ICA 79.9/27.0 cm/sec. Rt. ICA/CCA = 133.2/79.9=1.7. Lt. ICA/CCA = 79.9/51.7=1.5. Prox ECA 247.6/11.6 cm/sec. Prox ECA 78.0/18.5 cm/sec. Rt. Vert. 34.8/7.0 cm/sec. Lt. Vert. 55.4/21.4 cm/sec. Right Extracranial There is heterogeneous, irregular atherosclerotic plaque noted in the right common carotid artery. There is heterogeneous, irregular atherosclerotic plaque noted in the right internal carotid artery. There is heterogeneous, irregular atherosclerotic plaque noted in the right external carotid artery. Antegrade flow is noted in the right vertebral artery. Left Extracranial There is heterogeneous, irregular atherosclerotic plaque noted in the left common carotid artery. There is homogeneous, smooth atherosclerotic plaque noted in the left internal carotid artery. Stent noted from mid LT CCA to mid LT ICA, accoustic shadowing noted in Prox ICA. There is no significant atherosclerotic plaque noted in the left external carotid artery. Unableto visualize prox ECA due to accoustic shadowing. Antegrade flow is noted in the left vertebral artery. Procedure Carotid Duplex 13749. This is a Carotid Duplex examination using B-mode, color flow and specral Doppler. Exam performed in department. VL/Carotid Duplex Ultrasound Interpretation Summary Mild (<50%) stenosis right extracranial internal carotid. Mild (<50%) stenosis left extracranial internal carotid. Patent and antegrade vertebrals bilaterally. Ordering Physician: Jesus Weeks Referring Physician: Chris Byrd Performed By: Monisha Collazo, REVA, RVT
== END | disposition home or self-care (01) ==
LOC: CVS 08:33
PROVIDERS: PCP Internal Medicine; Referring Provider Surgery Vascular Surgery; Visit Provider Surgery Vascular Surgery
DX: I65.23 Occlusion and stenosis of bilateral carotid arteries (principal); I63.9 Cerebral infarction, unspecified; Z96.89 Presence of other specified functional implants; Z98.890 Other specified postprocedural states
CPT/HCPCS: 93880